=== PATIENT | female | born 1995 | race Two or more races ===

== ENCOUNTER 2024-08-18 11:53 | Emergency (ER) | payer MEDICAID ==
[~2024-08-18] VITALS: Ht 160 cm; Wt 50.8 kg
[2024-08-18] MEDS ORDERED: LORAZEPAM 1 MG TABLET ONE (12:54)
[2024-08-18] MEDS: LORAZEPAM 1 MG TABLET PO ONE (12:56)
[2024-08-18 15:10] VITALS: BP 110/63; TEMP 98.1; O2SAT 97
== END 2024-08-18 15:12 | disposition home or self-care (01) ==
LOC: ER 11:57
DX: F41.9 Anxiety disorder, unspecified (principal)